=== PATIENT | female | born 1955 | race Caucasian/White ===

== ENCOUNTER 2016-09-22 17:44 | Emergency (ER) | payer BC ==
--- NOTE | 2016-09-22 19:04 | ER Document Report ---
ED Medical Screen (RME) - General Chief Complaint: Fall Injury Stated Complaint: FALL/LEG PAIN Notes: This 61-year-old female patient comes emergency room by EMS today for pain and swelling to her right knee and left ankle. She is a chronic alcoholic and was intoxicated yesterday when she tripped walking from her garage landing on the right knee. Today the right knee gave out and she fell injuring the left ankle. The right knee and left ankle are grossly swollen and quite tender. Patient appears to be having some withdrawal shaking at this time. I have greeted and performed a rapid initial assessment of this patient. A comprehensive ED assessment and evaluation of the patient, analysis of test results and completion of the medical decision making process will be conducted by additional ED providers. TRAVEL OUTSIDE OF THE [place] IN LAST 30 DAYS: No - Related Data Allergies/Adverse Reactions: No Known Allergies Allergy (Verified 09/22/16 18:08) Past Medical History - Social History Chew tobacco use (# tins/day): No Frequency of alcohol use: Heavy Drug Abuse: None Pulmonary Medical History: Reports: Hx Bronchitis Renal/ Medical History: Denies: Hx Peritoneal Dialysis Psychiatric Medical History: Reports: Hx Anxiety, Hx Depression Surgical Hx: Negative - Immunizations Hx Diphtheria, Pertussis, Tetanus Vaccination: Yes Physical Exam - Vital signs Vitals: Temp Pulse Resp BP Pulse Ox 98.2 F 83 18 112/51 L 93 09/22/16 18:08 09/22/16 18:08 09/22/16 18:08 09/22/16 18:08 09/22/16 18:08 Course - Vital Signs Vital signs: Temp Pulse Resp BP Pulse Ox 98.2 F 83 18 112/51 L 93 09/22/16 18:08 09/22/16 18:08 09/22/16 18:08 09/22/16 18:08 09/22/16 18:08
--- NOTE | 2016-09-22 20:44 | RADIOLOGY REPORT (SQ) ---
EXAM DESCRIPTION: KNEE RIGHT 4 VIEWS COMPLETED DATE/TIME: 09/22/2016 8:18 pm REASON FOR STUDY: fall COMPARISON: None. NUMBER OF VIEWS: Four views. TECHNIQUE: AP, lateral, and both oblique radiographic images acquired of the right knee. LIMITATIONS: None. FINDINGS: MINERALIZATION: Normal. BONES: Midbody patellar fracture with 3.5 cm of proximal retraction of the upper half of the patellar body. No other fractures identified. No worrisome bone lesions. JOINT: Moderate effusion. SOFT TISSUES: Moderate soft tissue swelling. No radio-opaque foreign body. OTHER: No other significant finding. IMPRESSION: Midbody patellar fracture with 3.5 cm of proximal retraction of the upper half of the pa tellar body. TECHNICAL DOCUMENTATION: JOB ID: [id number] [employer]- All Rights Reserved
--- NOTE | 2016-09-22 20:47 | RADIOLOGY REPORT (SQ) ---
EXAM DESCRIPTION: TIBIA FIBULA LEFT COMPLETED DATE/TIME: 09/22/2016 8:18 pm REASON FOR STUDY: fall COMPARISON: None. NUMBER OF VIEWS: Two views. TECHNIQUE: Two radiographic images acquired of the left tibia and fibula to include the knee and ank le in at least one projection. LIMITATIONS: None. FINDINGS: MINERALIZATION: Normal. BONES: Nondisplaced distal fibular -lateral malleolar fracture. No other fracture or dislocation. N o worrisome bone lesions. SOFT TISSUES: Lateral swelling. No radiopaque foreign body. OTHER: No other significant finding. IMPRESSION: Nondisplaced distal fibular -lateral malleolar fracture. TECHNICAL DOCUMENTATION: JOB ID: [id number] [employer]- All Rights Reserved
--- NOTE | 2016-09-22 20:49 | RADIOLOGY REPORT (SQ) ---
EXAM DESCRIPTION: ANKLE LEFT COMPLETE COMPLETED DATE/TIME: 09/22/2016 8:18 pm REASON FOR STUDY: fall COMPARISON: None. NUMBER OF VIEWS: Three views. TECHNIQUE: AP, lateral, and oblique radiographic images acquired of the left ankle. LIMITATIONS: None. FINDINGS: MINERALIZATION: Normal. BONES: Nondisplaced distal fibular -lateral malleolar fracture. No dislocation. No worrisome bone le sions. JOINTS: No effusions. SOFT TISSUES: Lateral soft tissue swelling. No foreign body. OTHER: No other significant finding. IMPRESSION: Nondisplaced distal fibular -lateral malleolar fracture. TECHNICAL DOCUMENTATION: JOB ID: [id number] [employer]- All Rights Reserved
[2016-09-22] MEDS ORDERED: MORPHINE SULFATE IR 15 MG TABLET PO ONE (21:14)
--- NOTE | 2016-09-22 21:23 | ER Document Report ---
ED General - General Chief Complaint: Fall Injury Stated Complaint: FALL/LEG PAIN Time Seen by Provider: 09/22/16 19:10 Notes: Patient is a 61-year-old female with chronic alcohol abuse who presents after having a fall yesterday while intoxicated striking her right knee. States that that knee gave way on her today causing her again to fall to the ground injuring both her left ankle and reinjuring her right knee. Denies any injury to any other location on her body. Denies any head or neck trauma. Describes a constant, severe, throbbing pain to the affected areas it is gotten progressively worse since onset. No history of similar injuries in the past. She has not seen a primary care doctor regarding today's concerns. TRAVEL OUTSIDE OF THE [place] IN LAST 30 DAYS: No - Related Data Allergies/Adverse Reactions: No Known Allergies Allergy (Verified 09/22/16 18:08) Past Medical History - General Information source: Patient - Social History Smoking Status: Current Every Day Smoker Chew tobacco use (# tins/day): No Frequency of alcohol use: Heavy Drug Abuse: None Lives with: Alone Family History: Reviewed & Not Pertinent Patient has suicidal ideation: No Patient has homicidal ideation: No Pulmonary Medical History: Reports: Hx Bronchitis Renal/ Medical History: Denies: Hx Peritoneal Dialysis Psychiatric Medical History: Reports: Hx Anxiety, Hx Depression Surgical Hx: Negative - Immunizations Hx Diphtheria, Pertussis, Tetanus Vaccination: Yes Review of Systems - Review of Systems Notes: Constitutional: Negative for fever. Eyes: Negative for visual changes. ENT: Negative for facial injury Cardiovascular: Negative for chest injury. Respiratory: Negative for shortness of breath. Gastrointestinal: Negative for abdominal injury. Genitourinary: Negative for genital injury Musculoskeletal: Positive for right knee and left ankle injuries Skin: Negative for laceration/abrasions. Neurological: Negative for head injury. Physical Exam - Vital signs Vitals: Temp Pulse Resp BP Pulse Ox 98.2 F 83 18 112/51 L 93 09/22/16 18:08 09/22/16 18:08 09/22/16 18:08 09/22/16 18:08 09/22/16 18:08 Interpretation: Normal Notes: PHYSICAL EXAMINATION: GENERAL: Appears uncomfortable but in no acute distress HEAD: Atraumatic, normocephalic. EYES: Pupils equal round and reactive to light, extraocular movements intact, sclera anicteric, conjunctiva are normal. ENT: nares patent, no oral pharyngeal trauma. No hemotympanum, no Lynne's sign , no raccoon eyes. NECK: No midline cervical spine tenderness. Patient able to move their head to 45 bilaterally without any discomfort. LUNGS: Breath sounds clear to auscultation bilaterally and equal. No wheezes rales or rhonchi. HEART: Regular rate and rhythm without murmurs. 2+ DP pulses bilaterally. CHEST WALL: No ecchymosis over the chest wall. ABDOMEN: Soft, nontender, normoactive bowel sounds. No guarding, no rebound. No seatbelt sign. EXTREMITIES: There is ecchymosis and swelling of both the left ankle and right knee. Limited range of motion with the right knee secondary to pain. Full plantar and dorsiflexion of the left ankle. BACK: No midline spinal tenderness, step-offs, or deformities. NEUROLOGICAL: Face symmetric. Tongue protrudes midline. Extraocular motions intact. Pupils are 2 mm and equally reactive. Normal speech, normal gait. 5 out of 5 strength in both the distal and proximal upper and lower extremities bilaterally. Sensation is grossly intact throughout. Finger to nose testing normal. Pronator drift normal. PSYCH: Anxious SKIN: Warm, Dry, normal turgor, no rashes or lesions noted. Course - Re-evaluation Re-evalutation: 09/22/16 21:14 Presentation of a well patient in no acute distress, vitals within normal limits after fall while intoxicated yesterday. No focal neurologic deficits on exam, no evidence of basilar skull fracture on exam without evidence of hemotympanum, raccoon eyes, or periauricular hematoma. No papilledema. Patient is not on anticoagulation. GCS is 15. No loss of consciousness. No episodes of vomiting. Patient is therefore negative via [place] head CT criteria and CT imaging will not be obtained at this time. Patient also evaluated by nexus criteria and found to be negative. Patient is also negative by dutch C-spine criteria. No clinical evidence to suggest increased risk of cervical spine fracture. No indication for further imaging of the cervical spine. Chest and abdominal exam are benign without any focal tenderness, shortness of breath, or bruising over the chest or abdominal wall. Patient has no flank tenderness. Does have a patellar fracture on the right with associated hematoma of the right knee. Will place in a knee immobilizer. She also has a distal fibular and lateral malleolus fracture on the left. She was placed in a short leg posterior splint. She will follow-up with orthopedic surgery for both of these injuries. At this time will discharge with return precautions and follow-up recommendations. Verbal discharge instructions given a the bedside and opportunity for questions given. Medication warnings reviewed. Patient is in agreement with this plan and has verbalized understanding of return precautions and the need for primary care follow-up in the next 24-72 hours. - Vital Signs Vital signs: Temp Pulse Resp BP Pulse Ox 98.2 F 83 18 116/54 L 95 09/22/16 18:08 09/22/16 18:08 09/22/16 18:08 09/23/16 00:00 09/23/16 00:45 - Diagnostic Test Radiology reviewed: Image reviewed, Reports reviewed Radiology results interpreted by me: 09/22/16 21:15 Right knee: Patella fracture Left ankle: Distal fibular fracture Procedures - Immobilization Left Ankle Pre-Proc Neuro Vasc Exam: Normal Immobilizer type: Short Leg Posterior Performed by: Provider assisted Post-Proc Neuro Vasc Exam: Normal Alignment checked and good: Yes Discharge - Discharge Clinical Impression: Alcohol abuse Fall Qualifiers: Encounter type: initial encounter Qualified Code(s): W19.XXXA - Unspecified fall, initial encounter Right patella fracture Qualifiers: Encounter type: initial encounter Fracture type: closed Fracture morphology: unspecified fracture morphology Fracture alignment: displaced Qualified Code(s) : S82.001A - Unspecified fracture of right patella, initial encounter for closed fracture Closed fracture of left distal fibula Qualifiers: Encounter type: initial encounter Fracture morphology: unspecified fracture morphology Qualified Code(s): S82.832A - Other fracture of upper and lower end of left fibula, initial encounter for closed fracture Condition: Good Disposition: HOME, SELF-CARE Additional Instructions: You need to follow-up with orthopedic surgery as you have a fracture of your kneecap on the right as well as a fracture of your left ankle. These injuries appear both to be related to your fall while intoxicated. You should seek help with the attached resources for your problem drinking. You need to use the crutches at all times until cleared by orthopedic surgery. For your pain: Take ibuprofen 600 mg and acetaminophen 1000 mg every 6 hours together as needed for pain. If this does not control your pain you may take 15 mg of oral morphine every 4 hours as needed. Please be very careful about using the oral morphine and only use this for severe pain. Please return to the emergency room immediately if you experience any concerning symptoms including high fevers, severe headache, chest pain, difficulty breathing, abdominal pain, slurred speech, numbness or weakness in your arms or legs, or any other symptom that concerns you. Prescriptions: Morphine Sulfate [Morphine Ir 15 mg Tablet] 15 mg PO Q4HP PRN #12 tablet PRN Reason: Referrals: ENZO CARMONA MD [ACTIVE STAFF] - Follow up in 3-5 days
[2016-09-23 00:57] VITALS: BP 116/54
== END 2016-09-23 01:05 | disposition home or self-care (01) ==
LOC: ER 17:44
PROC: 2W3RX1Z Immobilization of Left Lower Leg using Splint (ICD-10-PCS; principal; 2016-09-22)
DX: S82.001A Unspecified fracture of right patella, initial encounter for closed fracture (principal); F10.10 Alcohol abuse, uncomplicated; M25.561 Pain in right knee; W19.XXXA Unspecified fall, initial encounter; F17.200 Nicotine dependence, unspecified, uncomplicated
CPT/HCPCS: 99283; 73610; 73564; 73590; 29515; L1830